=== PATIENT | female | born 1975 | race Caucasian/White ===

== ENCOUNTER 2016-10-23 17:46 | Emergency (ER) | payer OTHER ==
[2016-10-23] MEDS ORDERED: Zofran 4 MG/2 ML VIAL IV ONE (18:35)
[2016-10-23] MEDS ORDERED: PROTONIX 40 MG IV IV ONE ×2 (18:35→18:43)
[2016-10-23] MEDS ORDERED: Zofran 4 MG/2 ML VIAL ONE (18:43)
[2016-10-23] MEDS ORDERED: Sodium Chloride 0.9% 1000 ML 1,000 ML ONE (18:43)
--- NOTE | 2016-10-23 18:44 | ERPHSYRPT ---
- History of Present Illness Historian: patient Exam Limitations: clinical condition Patient Subjective Stated Complaint: PT REPORTS WHOLE BACK PAIN FOR 3 WEEKS-ABD PAIN BEGINNING TODAY-VOMITED X 1 YESTERDAY Triage Nursing Assessment: PT PINK WARM ET [id number] QUESTIONS-NO OBVIOUS SIGN OF INJURY-PT MOVING ALL EXTREMITIES WITHE ASE Timing/Duration: week(s) Activities at Onset: none Quality: cramping Abdominal Pain Onset Location: epigastric Pain Radiation: no radiation Severity of Pain-Max: moderate Severity of Pain-Current: moderate Modifying Factors: Improves With: vomiting Associated Symptoms: back Previous symptoms: same symptoms as today Hx Tetanus, Diphtheria Vaccination/Date Given: No Hx Influenza Vaccination/Date Given: No Hx Pneumococcal Vaccination/Date Given: No Immunizations Up to Date: Yes <JOSE LUIS GEORGE - Last Filed: 10/23/16 19:08> <MARK KIRK - Last Filed: 10/23/16 21:46> - History of Present Illness Time Seen by Provider: 10/23/16 18:20 Physician History: PATIENT COMPLAINS OF GENERALIZED BACK PAIN FOR 3 WEEKS NOW HAS UPPER ABDOMINAL PAIN ASSOCIATED WITH EMESIS X 1 YESTERDAY. DENIES FEVER, DIARRHEA, URINARY SYMPTOMS. (JOSE LUIS GEORGE) Allergies/Adverse Reactions: No Known Drug Allergies Allergy (Verified 10/23/16 18:14) Home Medications: Escitalopram Oxalate 10 mg [Lexapro 10 MG] 10 mg PO DAILY 10/23/16 [History] - Review of Systems Constitutional: No Fever, No Chills Eyes: No Symptoms Ears, Nose, & Throat: No Symptoms Respiratory: No Symptoms, No Cough, No Dyspnea Cardiac: No Symptoms, No Chest Pain, No Edema, No Syncope Abdominal/Gastrointestinal: Abdominal Pain, Nausea, Vomiting, No Diarrhea Genitourinary Symptoms: No Symptoms, No Dysuria Musculoskeletal: Back Pain, No Neck Pain Skin: No Symptoms, No Rash Neurological: No Symptoms, No Dizziness, No Focal Weakness, No Sensory Changes Psychological: No Symptoms Endocrine: No Symptoms All Other Systems: Reviewed and Negative <JOSE LUIS GEORGE - Last Filed: 10/23/16 19:08> - Past Medical History Pertinent Past Medical History: No Neurological History: No Pertinent History ENT History: No Pertinent History Cardiac History: No Pertinent History Respiratory History: No Pertinent History Endocrine Medical History: No Pertinent History Musculoskeletal History: Degenerative Disk Disease GI Medical History: Gallbladder Disease History: No Pertinent History Psycho-Social History: Depression, Other Female Reproductive Disorders: No Pertinent History Other Medical History: chronic back pain - Past Surgical History Past Surgical History: Yes Neuro Surgical History: No Pertinent History Cardiac: No Pertinent History Respiratory: No Pertinent History Gastrointestinal: No Pertinent History Genitourinary: No Pertinent History Musculoskeletal: Orthopedic Surgery Female Surgical History: Section, Hysterectomy Other Surgical History: SHOULDER SURGERY, appy - Social History Smoking Status: Current every day smoker How long have you smoked: 25 Exposure to second hand smoke: Yes Drug Use: none Patient Lives Alone: No <NIKOLAIJOSE LUIS Major Last Filed: 10/23/16 19:08> - Physical Exam General Appearance: no apparent distress, alert Eye Exam: PERRL/EOMI, eyes nml inspection Ears, Nose, Throat Exam: normal ENT inspection, pharynx normal, moist mucous membranes Neck Exam: normal inspection, non-tender, supple, full range of motion Respiratory Exam: normal breath sounds, lungs clear, No respiratory distress Cardiovascular Exam: regular rate/rhythm, normal heart sounds Gastrointestinal/Abdomen Exam: soft, normal bowel sounds, tenderness ( EPIGASTRIC TENDERNESS,), No mass Back Exam: normal inspection, normal range of motion, decreased range of motion , other (MINIMAL PARASPINAL THORACIC TENDERNESS), No CVA tenderness, No vertebral tenderness Extremity Exam: normal inspection, normal range of motion, pelvis stable Neurologic Exam: alert, oriented x 3, cooperative, normal mood/affect, nml cerebellar function, sensation nml, No motor deficits Skin Exam: normal color, warm, dry SpO2 Interpretation: normal SpO2: 98 Oxygen Delivery: Room Air <NIKOLAIJOSE LUIS Medina Filed: 10/23/16 19:08> - Course EKG Interpreted by Me: RATE, Sinus Rhythm, NORMAL AXIS <NIKOLAIJOSE LUIS Major Filed: 10/23/16 19:08> - Course Nursing assessment & vital signs reviewed: Yes - CT Exams Abdomen/Pelvis CT Interpretation: Discussed w/radiologist (CT abdomen and pelvis: Compared to October 27, 2014. Stable L4-S1 degenerative dis. 12 mm left ovarian cyst. Remaining abdomen/pelvis negative) <MARK KIRK - Last Filed: 10/23/16 21:46> Ordered Tests: Active Orders 24 hr Category Date Time Status Clean Catch Urine Specimen STAT Care 10/23/16 18:35 Active IV Insertion STAT Care 10/23/16 18:35 Active ABDOMEN AND PELVIS W CONTRAST [CT] Stat Exams 10/23/16 20:04 Taken AMYLASE Stat Lab 10/23/16 18:45 Completed CBC W DIFF Stat Lab 10/23/16 18:45 Completed CMP Stat Lab 10/23/16 18:45 Completed LIPASE Stat Lab 10/23/16 18:45 Completed UA W/ MICROSCOPIC Stat Lab 10/23/16 18:40 Completed Urine Triage Profile Stat Lab 10/23/16 18:40 Completed Medication Summary Generic Name Dose Route Start Last Admin Trade Name Freq PRN Reason Stop Dose Admin Sodium Chloride 1,000 mls @ 500 mls/hr 10/23/16 18:45 10/23/16 18:51 Sodium Chloride 0.9% 1000 Ml IV 11/22/16 18:44 500 mls/hr .Q2H AQUILINO Administration Discontinued Medications Generic Name Dose Route Start Last Admin Trade Name Freq PRN Reason Stop Dose Admin Ondansetron HCl 4 mg 10/23/16 18:35 10/23/16 18:51 Zofran 4 Mg/2 Ml Vial IV 10/23/16 18:36 4 mg STAT ONE Administration Ondansetron HCl Confirm 10/23/16 18:43 Zofran 4 Mg/2 Ml Vial Administered 10/23/16 18:44 Dose 4 mg .ROUTE .STK-MED ONE Pantoprazole Sodium 40 mg 10/23/16 18:35 10/23/16 18:51 Protonix 40 Mg Iv IV 10/23/16 18:36 40 mg STAT ONE Administration Pantoprazole Sodium Confirm 10/23/16 18:43 Protonix 40 Mg Iv Administered 10/23/16 18:44 Dose 40 mg IV .STK-MED ONE Lab/Rad Data: Laboratory Result Diagrams 10/23/16 18:45 10/23/16 18:45 Laboratory Results 10/23/16 10/23/16 10/23/16 Range/Units 18:45 18:45 18:40 WBC 11.4 H (4.0-10.5) K/mm3 RBC 4.75 (4.1-5.4) M/mm3 Hgb 15.2 (12.0-16.0) gm/dl Hct 45.7 (35-47) % MCV 96.2 (78-100) fl MCH 32.0 (26-32) pg MCHC 33.3 (32-36) g/dl RDW 12.8 (11.5-14.0) % Plt Count 408 (150-450) K/mm3 MPV 9.3 (6-9.5) fl Gran % 77.8 H (36.0-66.0) % Lymphocytes % 15.9 L (24.0-44.0) % Monocytes % 4.8 (0.0-12.0) % Eosinophils % 1.1 (0.00-5.0) % Basophils % 0.4 (0.0-0.4) % Basophils # 0.05 (0-0.4) Sodium 140 (136-145) mEq/L Potassium 4.0 (3.5-5.1) mEq/L Chloride 104 (98-107) mEq/L Carbon Dioxide 23.9 (21-32) mEq/L Anion Gap 16.2 H (5-15) MEQ/L BUN 6 L (9-20) mg/dL Creatinine 0.78 (0.55-1.30) mg/dl Estimated GFR > 60 ML/MIN Glucose 93 (70-110) MG/DL Calcium 9.6 (8.5-10.1) mg/dL Total Bilirubin 0.2 (0.2-1.0) mg/dL AST 15 (15-37) U/L ALT 13 (12-78) U/L Alkaline Phosphatase 65 (46-116) U/L Serum Total Protein 7.7 (6.4-8.2) gm/dL Albumin 4.2 (3.4-5.0) g/dL Amylase 70 (25-115) U/L Lipase 132 (73-393) U/L Ur Collection Type Urine Color (YELLOW) Urine Appearance (CLEAR) Urine pH (5-6) Ur Specific Williams (1.005-1.025) Urine Protein (Negative) Urine Glucose (UA) (NEGATIVE) mg/dL Urine Ketones (NEGATIVE) Urine Nitrite (NEGATIVE) Urine Bilirubin (NEGATIVE) Urine Urobilinogen (0-1) mg/dL Urine WBC (Auto) (NEGATIVE) Urine RBC (Auto) (0-5) Yahir/ul Urine Microscopic RBC (0-2) /HPF Ur Epithelial Cells (FEW) /HPF Urine Bacteria (NEGATIVE) /HPF Urine Opiates Level NEG. (NEGATIVE) Ur Methadone NEG. (NEGATIVE) Urine Barbiturates NEG. (NEGATIVE) Ur Phencyclidine (PCP) NEG. (NEGATIVE) Urine Amphetamine NEG. (NEGATIVE) U Benzodiazepine Level NEG. (NEGATIVE) Urine Cocaine NEG. (NEGATIVE) Urine Marijuana (THC) NEG. (NEGATIVE) Specimen Received 10/23/16 Range/Units 18:40 WBC (4.0-10.5) K/mm3 RBC (4.1-5.4) M/mm3 Hgb (12.0-16.0) gm/dl Hct (35-47) % MCV (78-100) fl MCH (26-32) pg MCHC (32-36) g/dl RDW (11.5-14.0) % Plt Count (150-450) K/mm3 MPV (6-9.5) fl Gran % (36.0-66.0) % Lymphocytes % (24.0-44.0) % Monocytes % (0.0-12.0) % Eosinophils % (0.00-5.0) % Basophils % (0.0-0.4) % Basophils # (0-0.4) Sodium (136-145) mEq/L Potassium (3.5-5.1) mEq/L Chloride (98-107) mEq/L Carbon Dioxide (21-32) mEq/L Anion Gap (5-15) MEQ/L BUN (9-20) mg/dL Creatinine (0.55-1.30) mg/dl Estimated GFR ML/MIN Glucose (70-110) MG/DL Calcium (8.5-10.1) mg/dL Total Bilirubin (0.2-1.0) mg/dL AST (15-37) U/L ALT (12-78) U/L Alkaline Phosphatase (46-116) U/L Serum Total Protein (6.4-8.2) gm/dL Albumin (3.4-5.0) g/dL Amylase (25-115) U/L Lipase (73-393) U/L Ur Collection Type CLEAN CATCH Urine Color YELLOW (YELLOW) Urine Appearance CLEAR (CLEAR) Urine pH 5.0 (5-6) Ur Specific Williams 1.010 (1.005-1.025) Urine Protein NEGATIVE (Negative) Urine Glucose (UA) NEGATIVE (NEGATIVE) mg/dL Urine Ketones SMALL-15 (NEGATIVE) Urine Nitrite NEGATIVE (NEGATIVE) Urine Bilirubin NEGATIVE (NEGATIVE) Urine Urobilinogen 0.2 (0-1) mg/dL Urine WBC (Auto) NEGATIVE (NEGATIVE) Urine RBC (Auto) SMALL (0-5) Yahir/ul Urine Microscopic RBC 2-5 (0-2) /HPF Ur Epithelial Cells FEW (FEW) /HPF Urine Bacteria RARE (NEGATIVE) /HPF Urine Opiates Level (NEGATIVE) Ur Methadone (NEGATIVE) Urine Barbiturates (NEGATIVE) Ur Phencyclidine (PCP) (NEGATIVE) Urine Amphetamine (NEGATIVE) U Benzodiazepine Level (NEGATIVE) Urine Cocaine (NEGATIVE) Urine Marijuana (THC) (NEGATIVE) Specimen Received 10/23/16:1900 <JOSE LUIS GEORGE - Last Filed: 10/23/16 19:08> - Progress Progress: improved <MARK KIRK - Last Filed: 10/23/16 21:46> - Progress Progress Note: 10/23/16 18:44 PATIENT GIVEN IV FLUIDS NORMAL SALINE 500ML/HR, ZOFRAN 4MG, PROTONIX 40MG IV, PATIENT CARE ENDORSED TO DR KIRK AT 1907 FOR DISPOSITION 10/23/16 19:08 (JOSE LUIS GEORGE) 10/23/16 20:05 This is a 41-year-old white female initially seen by Dr. George. Patient arrives with complaint of pain in her entire back radiating across the left side of the back symptoms for 3 weeks worse at night around 3 in the morning when she is resting she states that today she started having epigastric pain associated with vomiting she has no fevers diarrhea or urinary symptoms she has no other complaints patient does have a history of degenerative disc disease and back pain in the past. Past medical history includes degenerative disc disease, depression, chronic back pain. Past surgical history includes , hysterectomy, orthopedic surgery, appendectomy. 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 Eyes PERRLA EOMI fundi are unremarkable. Ears TMs are intact bilaterally nose is clear. Throat is clear Neck is supple full range of motion Lungs clear to auscultation equal bilaterally Heart regular rate and rhythm without murmur/ Abdomen mild epigastric tenderness positive bowel sounds negative masses negative rebound. Back mild tenderness with palpation left posterior flank region and down into the lumbar region. Extremities full range of motion was equal symmetrical 2 over 4. Neuro cranial nerves II through XII are intact DTRs symmetrical equal 2/4 GCS is 15 sensation intact to all extremities. Impression back pain 3 weeks duration., Epigastric pain Plan CBC has been obtained by Dr. George shows white count 11 hemoglobin 15.2 hematocrit 45.7 platelets 408 urine drug screen is negative chemistry is essentially normal with the exception of an anion gap of 16.2 urinalysis is essentially normal with the exception of a small amount of ketones and 2-5 red cells. Have discussed patient's case with Dr. George consideration was to obtain CT of the abdomen and pelvis Will go ahead and obtain this, I have looked patient up on inspect them not finding anything in [place] will resubmit for [place] as well Will give patient Toradol 30 mg IV patient has already received IV normal saline per Dr. George. 10/23/16 21:[address] of the abdomen and pelvis is positive for degenerative disc disease L4-S1 which is stable since October 27, 2014. There is a left ovarian cyst 12 mm. Remaining abdomen and pelvis are negative. Patient feeling better after Toradol. I've discussed medications with the patient she does not want narcotic analgesia. Will send patient home with Naprosyn and Flexeril (MARK KIRK) <JOSE LUIS GEORGE - Last Filed: 10/23/16 19:08> - Departure Time of Disposition: 21:43 Departure Disposition: Home Critical Care Time: No <MARK KIRK - Last Filed: 10/23/16 21:46> - Departure Clinical Impression: Epigastric pain Back pain Qualifiers: Back pain location: low back pain Chronicity: acute Back pain laterality: left Sciatica presence: without sciatica Qualified Code(s): M54.5 - Low back pain Degenerative disc disease Qualifiers: Spinal region: lumbosacral Qualified Code(s): M51.37 - Other intervertebral disc degeneration, lumbosacral region Condition: Fair Instructions: Low Back Pain Additional Instructions: Return home. Plenty of fluids, clear fluids only 24-48 hours if abdominal pain. Naprosyn 500 mg one orally twice a day with food as needed for pain. Flexeril 10 mg orally 3 times a day for 5 days. Follow-up with your family doctor. Return for acute distress or for severe symptoms. Prescriptions: Cyclobenzaprine HCl [Flexeril] 10 mg PO TID #15 tablet Naproxen [Naprosyn] 500 mg PO BIDWMEALS #20 tablet
[2016-10-23] MEDS ORDERED: Sodium Chloride 0.9% 1000 ML 1,000 ML IV SCH (18:45)
[2016-10-23 19:15] LABS: BASOPHIL % 0.4 % (0.0-0.4); Eosinophil % 1.1 % (0.00-5.0); Granulocytes % 77.8 % (36.0-66.0); Lymphocytes % 15.9 % (24.0-44.0); Mean Cell Volume 96.2 fl (78-100); Mean Platelet Volume 9.3 fl (6-9.5); Monocytes % 4.8 % (0.0-12.0); Platelet Count 408 K/mm3 (150-450); Red Blood Count 4.75 M/mm3 (4.1-5.4); Red Cell Distribution Width 12.8 % (11.5-14.0); White Blood Count 11.4 K/mm3 (4.0-10.5)
[2016-10-23 19:21] LABS: Collection Type CLEAN CATCH
[2016-10-23 19:22] LABS: Bacteria RARE /HPF (NEGATIVE); COMPLETE URINE MICROSCOPIC? YES; Epithelial Cells FEW /HPF (FEW)
[2016-10-23 19:36] LABS: ALBUMIN 4.2 g/dL (3.4-5.0); ALKALINE PHOSPHATASE 65 U/L (46-116); ANION GAP 16.2 MEQ/L (5-15); BILIRUBIN,TOTAL 0.2 mg/dL (0.2-1.0); BLOOD UREA NITROGEN 6 mg/dL (9-20); CHLORIDE 104 mEq/L (98-107); Carbon Dioxide 23.9 mEq/L (21-32); Glucose 93 MG/DL (70-110); LIPASE 132 U/L (73-393); SGOT/AST 15 U/L (15-37); SGPT/ALT 13 U/L (12-78); SODIUM 140 mEq/L (136-145); Total Protein 7.7 gm/dL (6.4-8.2)
[2016-10-23 21:05] VITALS: BP 132/71; PULSE 76; O2SAT 99
--- NOTE | 2016-10-24 08:50 | XRAY ---
Indication: Abdominal/back pain. Multiple contiguous axial images obtained through the abdomen and pelvis using 80 cc Isovue 370 contrast only. Comparison: October 27, 2014. Lung bases again demonstrates minimal bibasilar dependent atelectasis. Heart is not enlarged. Noncontrasted stomach and bowel loops appear nonobstructed. Again a few calcified splenic granulomas, cholecystectomy, hysterectomy, and reported appendectomy. 12 mm left ovary cyst. No free fluid/air. Remaining liver, pancreas, spleen, adrenal glands, kidneys, ureters, and bladder appear unremarkable. Again minimal distal aortic calcifications. No AAA or pathologic retroperitoneal lymphadenopathy. Osseous structures intact with stable moderate L4-S1 degenerative disc disease. Impression: 1. 12 mm left ovary cyst. 2. No acute intra-abdominal/pelvic abnormalities. CT DI 8.85
== END 2016-10-23 21:58 | disposition home or self-care (01) ==
LOC: ED 17:46
DX: M54.5 Low back pain (principal); M51.37 Other intervertebral disc degeneration, lumbosacral region; R10.13 Epigastric pain; R11.10 Vomiting, unspecified; R10.10 Upper abdominal pain, unspecified
CPT/HCPCS: 36000; 36415; 74177; 80053; 80307; 81000; 82150; 83690; 85025; 96360; 96361; 96374; 96375; 99284; J2405

== ENCOUNTER 2021-01-28 15:29 | Emergency (ER) | payer OTHER ==
[2021-01-28 16:04] VITALS: O2SAT 98
[2021-01-28 16:39] LABS: ALBUMIN 4.3 g/dL (3.5-5.0); ALKALINE PHOSPHATASE 88 U/L (38-126); BILIRUBIN,TOTAL < 0.10 mg/dL (0.2-1.3); BLOOD UREA NITROGEN 9 mg/dL (7-17); CHLORIDE 108 mmol/L (98-107); Calcium 9.7 mg/dL (8.4-10.2); Carbon Dioxide 20 mmol/L (22-30); Creatinine 1 0.82 mg/dL (0.52-1.04); EST GLOMERULAR FILTRATION RATE > 60.0 ML/MIN; Glucose 130 mg/dL (74-106); Potassium 3.8 mmol/L (3.5-5.1); SGOT/AST 32 U/L (14-36); SGPT/ALT 18 U/L (0-35); SODIUM 140 mmol/L (137-145); Total Protein 6.9 g/dL (6.3-8.2)
[2021-01-28 16:49] LABS: Absolute Neutrophil Ct (ANC) 4.06 (1.4-6.9); BASOPHIL % 1.1 % (0.0-0.4); Basophil (Absolute #) 0.07 (0-0.4); Eosinophil % 2.8 % (0.00-5.0); Eosinophil (Absolute #) 0.18 (0-0.5); Hematocrit 40.7 % (35-47); Hemoglobin 13.2 gm/dl (12.0-16.0); Lymphocyte (Absolute #) 1.68 (1.0-4.6); Lymphocytes % 26.3 % (24.0-44.0); Mean Cell Volume 110.6 fl (78-100); Mean Corpuscular Hemoglobin 35.9 pg (26-32); Mean Corpuscular Hgb Concent. 32.4 g/dl (32-36); Mean Platelet Volume 9.1 fl (7.5-11.0); Monocyte (Absolute #) 0.41 (0.0-1.3); Monocytes % 6.4 % (0.0-12.0); Neutrophil % 63.4 % (36.0-66.0); Platelet Count 369 K/mm3 (150-450); Red Blood Count 3.68 M/mm3 (4.1-5.4); Red Cell Distribution Width 13.9 % (11.5-14.0); White Blood Count 6.4 K/mm3 (4.0-10.5)
--- NOTE | 2021-01-28 17:25 | ERPHSYRPT ---
- History of Present Illness Time Seen by Provider: 01/28/21 15:45 Historian: patient Exam Limitations: no limitations Patient Subjective Stated Complaint: pt here for chest to center chest today with a headache, she states recently she has been under a lot of stress and her b/p has been high. she states she recently stoped drinking alc, Triage Nursing Assessment: pt alert, resp easy, skin w/d/p.face mask in place, no edema noted, nonproductive cough Physician History: Is a 45-year-old female who presents with a complaint of chest pain palpitations and heart racing which started while she was asleep. She has been under a great deal of stress recently with the of her father and she for a short period of time did some heavy binge drinking but has stopped 2 weeks ago and is not drinking any further she also was taken off of her thyroid medication 2 weeks ago when it was found her TSH was low apparently. 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 She also was found to have a low potassium but that has been corrected. She was encouraged to stop drinking further by the fact that her LFTs were elevated. She had dated blood pressure noted 2 weeks ago and she has noticed some change in her weight. Timing/Duration: today Activities at Onset: sleep Quality: pressure, throbbing Location: substernal Chest Pain Radiation: no radiation Severity of Pain-Max: mild Severity of Pain-Current: mild Modifying Factors: Improves With: nothing Associated Symptoms: palpitations Prior Chest Pain/Cardiac Workup: no prior chest pain Nitro Today/Relief: no nitro taken today Aspirin Treatment Today: no aspirin today Allergies/Adverse Reactions: No Known Drug Allergies Allergy (Verified 01/28/21 15:39) Home Medications: Escitalopram Oxalate 10 mg [Lexapro 10 MG] 10 mg PO DAILY 10/23/16 [History] Ergocalciferol (Vitamin D2) [Vitamin D] 1 ea DAILY 01/28/21 [History] Hx Tetanus, Diphtheria Vaccination/Date Given: No Hx Influenza Vaccination/Date Given: No Hx Pneumococcal Vaccination/Date Given: No Immunizations Up to Date: Yes Travel Risk - International Travel Have you traveled outside of the country in past 3 weeks: No - Coronavirus Screening Are you exhibiting any of the following symptoms?: No Close contact with a COVID-19 positive Pt in past 14-21 Days: No - Vaccine Status Have you recieved a Covid-19 vaccination: No - Review of Systems Constitutional: No Fever, No Chills Eyes: No Symptoms Ears, Nose, & Throat: No Symptoms Respiratory: No Cough, No Dyspnea Cardiac: Chest Pain, Palpitations, No Edema, No Syncope Abdominal/Gastrointestinal: No Abdominal Pain, No Nausea, No Vomiting, No Diarrhea Genitourinary Symptoms: No Dysuria Musculoskeletal: No Back Pain, No Neck Pain Skin: No Rash Neurological: No Dizziness, No Focal Weakness, No Sensory Changes Psychological: No Symptoms Endocrine: No Symptoms All Other Systems: Reviewed and Negative - Past Medical History Pertinent Past Medical History: No Neurological History: No Pertinent History ENT History: No Pertinent History Cardiac History: No Pertinent History Respiratory History: No Pertinent History Endocrine Medical History: Hypothyroidism Musculoskeletal History: Degenerative Disk Disease GI Medical History: Gallbladder Disease History: No Pertinent History Psycho-Social History: Depression, Other Female Reproductive Disorders: No Pertinent History Other Medical History: chronic back pain - Past Surgical History Past Surgical History: Yes Neuro Surgical History: No Pertinent History Cardiac: No Pertinent History Respiratory: No Pertinent History Gastrointestinal: No Pertinent History Genitourinary: No Pertinent History Musculoskeletal: Orthopedic Surgery Female Surgical History: Section, Hysterectomy Other Surgical History: SHOULDER SURGERY, appy - Social History Smoking Status: Current every day smoker How long have you smoked: 25 Exposure to second hand smoke: Yes Drug Use: none Patient Lives Alone: No - Female History Hx Last Menstrual Period: hyster Hx Now: No - Nursing Vital Signs Nursing Vital Signs: Initial Vital Signs Pulse Rate 105 H 01/28/21 15:36 Pain Scale Pain Intensity 5 - Physical Exam General Appearance: mild distress, alert Eye Exam: PERRL/EOMI, eyes nml inspection Ears, Nose, Throat Exam: normal ENT inspection, moist mucous membranes Neck Exam: normal inspection, non-tender, supple, full range of motion Respiratory Exam: normal breath sounds, lungs clear, No respiratory distress Cardiovascular Exam: regular rate/rhythm, normal heart sounds Gastrointestinal/Abdomen Exam: soft, No tenderness, No mass Back Exam: normal inspection, No CVA tenderness, No vertebral tenderness Extremity Exam: normal inspection, normal range of motion Neurologic Exam: alert, oriented x 3, cooperative, normal mood/affect, sensation nml, No motor deficits Skin Exam: normal color, warm, dry SpO2: 98 - Course Nursing assessment & vital signs reviewed: Yes EKG Interpreted by Me: RATE (105), Sinus Tach, NORMAL AXIS, NORMAL INTERVALS, NORMAL QRS - Radiology Exams Chest X-ray Interpretation: Interpreted by me, Negative Ordered Tests: Active Orders 24 hr Category Date Time Status CHEST 2 VIEWS (PA AND LAT) Stat Exams 01/28/21 16:23 Taken CBC W DIFF Stat Lab 01/28/21 16:15 Completed CMP Stat Lab 01/28/21 16:15 Completed TROPONIN Q3H Lab 01/28/21 16:15 Completed TROPONIN Q3H Lab 01/28/21 19:00 Ordered TROPONIN Q3H Lab 01/28/21 22:00 Ordered TSH [TSH, 3RD Generation] Stat Lab 01/28/21 16:15 Completed Lab/Rad Data: Laboratory Result Diagrams 01/28/21 16:15 01/28/21 16:15 Laboratory Results 01/28/21 01/28/21 01/28/21 Range/Units 16:15 16:15 16:15 WBC 6.4 (4.0-10.5) K/mm3 RBC 3.68 L (4.1-5.4) M/mm3 Hgb 13.2 (12.0-16.0) gm/dl Hct 40.7 (35-47) % MCV 110.6 H (78-100) fl MCH 35.9 H (26-32) pg MCHC 32.4 (32-36) g/dl RDW 13.9 (11.5-14.0) % Plt Count 369 (150-450) K/mm3 MPV 9.1 (7.5-11.0) fl Gran % 63.4 (36.0-66.0) % Eos # (Auto) 0.18 (0-0.5) Absolute Lymphs (auto) 1.68 (1.0-4.6) Absolute Monos (auto) 0.41 (0.0-1.3) Lymphocytes % 26.3 (24.0-44.0) % Monocytes % 6.4 (0.0-12.0) % Eosinophils % 2.8 (0.00-5.0) % Basophils % 1.1 (0.0-0.4) % Absolute Granulocytes 4.06 (1.4-6.9) Basophils # 0.07 (0-0.4) Sodium 140 (137-145) mmol/L Potassium 3.8 (3.5-5.1) mmol/L Chloride 108 H (98-107) mmol/L Carbon Dioxide 20 L (22-30) mmol/L Anion Gap 16.0 H (5-15) MEQ/L BUN 9 (7-17) mg/dL Creatinine 0.82 (0.52-1.04) mg/dL Estimated GFR > 60.0 ML/MIN Glucose 130 H (74-106) mg/dL Calcium 9.7 (8.4-10.2) mg/dL Total Bilirubin < 0.10 L (0.2-1.3) mg/dL AST 32 (14-36) U/L ALT 18 (0-35) U/L Alkaline Phosphatase 88 (38-126) U/L Troponin I (0.000-0.034) ng/mL Serum Total Protein 6.9 (6.3-8.2) g/dL Albumin 4.3 (3.5-5.0) g/dL TSH 3rd Generation 0.066 L (0.47-4.68) mIU/L 01/28/21 Range/Units 16:15 WBC (4.0-10.5) K/mm3 RBC (4.1-5.4) M/mm3 Hgb (12.0-16.0) gm/dl Hct (35-47) % MCV (78-100) fl MCH (26-32) pg MCHC (32-36) g/dl RDW (11.5-14.0) % Plt Count (150-450) K/mm3 MPV (7.5-11.0) fl Gran % (36.0-66.0) % Eos # (Auto) (0-0.5) Absolute Lymphs (auto) (1.0-4.6) Absolute Monos (auto) (0.0-1.3) Lymphocytes % (24.0-44.0) % Monocytes % (0.0-12.0) % Eosinophils % (0.00-5.0) % Basophils % (0.0-0.4) % Absolute Granulocytes (1.4-6.9) Basophils # (0-0.4) Sodium (137-145) mmol/L Potassium (3.5-5.1) mmol/L Chloride (98-107) mmol/L Carbon Dioxide (22-30) mmol/L Anion Gap (5-15) MEQ/L BUN (7-17) mg/dL Creatinine (0.52-1.04) mg/dL Estimated GFR ML/MIN Glucose (74-106) mg/dL Calcium (8.4-10.2) mg/dL Total Bilirubin (0.2-1.3) mg/dL AST (14-36) U/L ALT (0-35) U/L Alkaline Phosphatase (38-126) U/L Troponin I < 0.012 (0.000-0.034) ng/mL Serum Total Protein (6.3-8.2) g/dL Albumin (3.5-5.0) g/dL TSH 3rd Generation (0.47-4.68) mIU/L - Progress Progress: improved Air Movement: good Blood Culture(s) Obtained: No Antibiotics given: No - Departure Departure Disposition: Home Clinical Impression: Palpitations Condition: Stable Critical Care Time: No Referrals: DENIS ARDON [Primary Care Provider] - Instructions: Chest Pain (DC) Prescriptions: Metoprolol Succinate 50 mg [Toprol Xl 50 MG] 50 mg PO DAILY 30 Days #30 tablet
[2021-01-28 17:37] VITALS: BP 163/112; PULSE 78
--- NOTE | 2021-01-28 20:22 | XRAY ---
Indication: Chest pain. Comparison: None PA/lateral chest does not include the posterior gutter on the lateral view. No focal infiltrate, consolidation, or large effusion. A few incidental tiny calcified granulomas. Heart and mediastinal structures within normal limits. Bony thorax intact. Impression: Nonacute Limited chest. Incidental old granulomatous disease.
== END 2021-01-28 17:38 | disposition home or self-care (01) ==
LOC: ED 15:29
DX: R00.2 Palpitations (principal)
CPT/HCPCS: 36000; 36415; 71046; 80053; 84443; 84484; 85025; 93041; 94760; 99284

== ENCOUNTER 2021-08-22 16:56 | Emergency (ER) | payer OTHER ==
[2021-08-22 17:41] LABS: ALKALINE PHOSPHATASE 114 U/L (38-126); ANION GAP 16.9 MEQ/L (5-15); BLOOD UREA NITROGEN 10 mg/dL (7-17); CHLORIDE 104 mmol/L (98-107); Calcium 9.9 mg/dL (8.4-10.2); Carbon Dioxide 22 mmol/L (22-30); Creatinine 1 0.91 mg/dL (0.52-1.04); EST GLOMERULAR FILTRATION RATE > 60.0 ML/MIN; Glucose 96 mg/dL (74-106); Potassium 3.7 mmol/L (3.5-5.1); SGOT/AST 27 U/L (14-36); SGPT/ALT 12 U/L (0-35); SODIUM 139 mmol/L (137-145); Total Protein 8.3 g/dL (6.3-8.2)
--- NOTE | 2021-08-22 17:52 | ERPHSYRPT ---
- History of Present Illness Time Seen by Provider: 08/22/21 17:20 Historian: patient Exam Limitations: no limitations Patient Subjective Stated Complaint: Abdominal pain Triage Nursing Assessment: Patient ambulated back to ED and transferred self to bed. Patient A+O X3. Patient's skin pink, warm and dry. Patient complains of intermittent abdominal pain for 2 weeks that has gotten worse. Patient complains of dull aching pain on left side of abdomen 3/10. Patient denies N/V and diarrhea. Patient states she is a daily drinker of a fifth of [employer] beam but stopped drinking 6 days. Abdomen soft and round with BS X 4. Patient states at times the pain will radiate to chest and got into back. Physician History: Patient is a 46-year-old female presents to emergency department for evaluation of intermittent abdominal pain that has been ongoing for approximately 2 weeks. Patient states the pain is progressive. Pain is mostly on the left side of her abdomen. Pain rated 3 out of 10. Patient states pain occasionally shoots into her chest. No chest pain at this time. No associated nausea vomiting or diaphoresis. No rash. No fever. Patient admits to history of daily alcohol use. However patient has not used alcohol in 6 days. Symptoms are mild to moderate in intensity. No specific worsening improving factors. Patient is otherwise healthy. She voices no other complaints or concerns at this time. Timing/Duration: week(s) (2 weeks) Activities at Onset: none Quality: aching Abdominal Pain Onset Location: other (Left to midline of abdomen) Pain Radiation: other (No radiation of pain. However occasional shooting sensation to her chest.) Severity of Pain-Max: moderate Severity of Pain-Current: mild Modifying Factors: Improves With: nothing Associated Symptoms: denies symptoms Previous symptoms: no prior history Allergies/Adverse Reactions: No Known Drug Allergies Allergy (Verified 08/22/21 17:01) Home Medications: Escitalopram Oxalate 10 mg [Lexapro 10 MG] 20 mg PO DAILY 10/23/16 [History] Levothyroxine Sodium [Euthyrox] 1 tab PO DAILY 08/22/21 [History] Hx Tetanus, Diphtheria Vaccination/Date Given: No Hx Influenza Vaccination/Date Given: No Hx Pneumococcal Vaccination/Date Given: No Immunizations Up to Date: Yes Travel Risk - International Travel Have you traveled outside of the country in past 3 weeks: No - Coronavirus Screening Are you exhibiting any of the following symptoms?: No Close contact with a COVID-19 positive Pt in past 14-21 Days: No - Vaccine Status Have you recieved a Covid-19 vaccination: No - Review of Systems Constitutional: No Symptoms, No Fever, No Chills Eyes: No Symptoms Ears, Nose, & Throat: No Symptoms Respiratory: No Symptoms, No Cough, No Dyspnea Cardiac: No Symptoms, No Chest Pain, No Edema, No Syncope Abdominal/Gastrointestinal: No Symptoms, No Abdominal Pain, No Nausea, No Vomiting, No Diarrhea Genitourinary Symptoms: No Symptoms, No Dysuria Musculoskeletal: No Symptoms, No Back Pain, No Neck Pain Skin: No Symptoms, No Rash Neurological: No Symptoms, No Dizziness, No Focal Weakness, No Sensory Changes Psychological: No Symptoms Endocrine: No Symptoms Hematologic/Lymphatic: No Symptoms Immunological/Allergic: No Symptoms All Other Systems: Reviewed and Negative - Past Medical History Pertinent Past Medical History: No Neurological History: No Pertinent History ENT History: No Pertinent History Cardiac History: No Pertinent History Respiratory History: No Pertinent History Endocrine Medical History: Hypothyroidism Musculoskeletal History: Degenerative Disk Disease GI Medical History: Gallbladder Disease History: No Pertinent History Psycho-Social History: Depression, Other Female Reproductive Disorders: No Pertinent History Other Medical History: chronic back pain - Past Surgical History Past Surgical History: Yes Neuro Surgical History: No Pertinent History Cardiac: No Pertinent History Respiratory: No Pertinent History Gastrointestinal: No Pertinent History Genitourinary: No Pertinent History Musculoskeletal: Orthopedic Surgery Female Surgical History: Section, Hysterectomy Other Surgical History: SHOULDER SURGERY, appy - Social History Smoking Status: Current every day smoker How long have you smoked: 25 Exposure to second hand smoke: Yes Drug Use: none Patient Lives Alone: No - Female History Hx Last Menstrual Period: partial hysterectomy 1998 Hx Now: No - Nursing Vital Signs Nursing Vital Signs: Initial Vital Signs Temperature 98.1 F 08/22/21 17:07 Pulse Rate 95 H 08/22/21 17:07 Respiratory Rate 18 08/22/21 17:07 Blood Pressure 146/102 08/22/21 17:07 O2 Sat by Pulse Oximetry 97 08/22/21 17:07 Pain Scale Pain Intensity 3 - Physical Exam General Appearance: no apparent distress, alert Eye Exam: PERRL/EOMI, eyes nml inspection Ears, Nose, Throat Exam: normal ENT inspection, pharynx normal, moist mucous membranes Neck Exam: normal inspection, non-tender, supple, full range of motion Respiratory Exam: normal breath sounds, lungs clear, airway intact, No respiratory distress Cardiovascular Exam: regular rate/rhythm, normal heart sounds, normal peripheral pulses Gastrointestinal/Abdomen Exam: soft, normal bowel sounds, No tenderness, No mass Back Exam: normal inspection, normal range of motion, No CVA tenderness, No vertebral tenderness Extremity Exam: normal inspection, normal range of motion, pelvis stable Neurologic Exam: alert, oriented x 3, cooperative, normal mood/affect, nml cerebellar function, sensation nml, No motor deficits Skin Exam: normal color, warm, dry Lymphatic Exam: No adenopathy SpO2 Interpretation: normal SpO2: 97 O2 Delivery: Room Air - Course Nursing assessment & vital signs reviewed: Yes EKG Interpreted by Me: RATE (76), Sinus Rhythm, NORMAL AXIS, NORMAL INTERVALS (Biatrial enlargement.) - CT Exams Abdomen/Pelvis CT Interpretation: Tele-radiologist Report (Compared to 10/23/2016 new mild fluid distended small bowel loops unchanged on delayed images. Ileus versus enteritis. Remaining abdomen pelvis negative) Ordered Tests: Active Orders 24 hr Category Date Time Status IV Insertion STAT Care 08/22/21 17:12 Active ABDOMEN AND PELVIS W CONTRAST [CT] Stat Exams 08/22/21 17:14 Taken CBC W DIFF Stat Lab 08/22/21 17:31 Completed CMP Stat Lab 08/22/21 17:31 Completed LIPASE Stat Lab 08/22/21 17:31 Completed TROPONIN Q3H Lab 08/22/21 17:55 Completed TROPONIN Q3H Lab 08/22/21 21:00 Ordered TROPONIN Q3H Lab 08/23/21 00:00 Ordered TROPONIN Q3H Lab 08/23/21 03:00 Ordered TROPONIN Q3H Lab 08/23/21 06:00 Ordered UA W/RFX UR CULTURE Stat Lab 08/22/21 18:10 Ordered Medication Summary Discontinued Medications Generic Name Dose Route Start Last Admin Trade Name Freq PRN Reason Stop Dose Admin Morphine Sulfate 4 mg 08/22/21 20:27 08/22/21 20:33 Morphine Sulfate 4 Mg/Ml Injection IV 08/22/21 20:28 4 mg STAT ONE Administration Morphine Sulfate Confirm 08/22/21 20:29 Morphine Sulfate 4 Mg/Ml Injection Administered 08/22/21 20:30 Dose 4 mg .ROUTE .STTerascore-MED ONE Lab/Rad Data: Laboratory Result Diagrams 08/22/21 17:31 08/22/21 17:31 Laboratory Results 08/22/21 08/22/21 08/22/21 Range/Units 17:55 17:31 17:31 WBC (4.0-10.5) K/mm3 RBC (4.1-5.4) M/mm3 Hgb (12.0-16.0) gm/dl Hct (35-47) % MCV (78-100) fl MCH (26-32) pg MCHC (32-36) g/dl RDW (11.5-14.0) % Plt Count (150-450) K/mm3 MPV (7.5-11.0) fl Gran % (36.0-66.0) % Eos # (Auto) (0-0.5) Absolute Lymphs (auto) (1.0-4.6) Absolute Monos (auto) (0.0-1.3) Lymphocytes % (24.0-44.0) % Monocytes % (0.0-12.0) % Eosinophils % (0.00-5.0) % Basophils % (0.0-0.4) % Absolute Granulocytes (1.4-6.9) Basophils # (0-0.4) Sodium 139 (137-145) mmol/L Potassium 3.7 (3.5-5.1) mmol/L Chloride 104 (98-107) mmol/L Carbon Dioxide 22 (22-30) mmol/L Anion Gap 16.9 H (5-15) MEQ/L BUN 10 (7-17) mg/dL Creatinine 0.91 (0.52-1.04) mg/dL Estimated GFR > 60.0 ML/MIN Glucose 96 (74-106) mg/dL Calcium 9.9 (8.4-10.2) mg/dL Total Bilirubin 0.50 (0.2-1.3) mg/dL AST 27 (14-36) U/L ALT 12 (0-35) U/L Alkaline Phosphatase 114 (38-126) U/L Troponin I < 0.012 (0.000-0.034) ng/mL Serum Total Protein 8.3 H (6.3-8.2) g/dL Albumin 5.0 (3.5-5.0) g/dL Lipase 170 (23-300) U/L 08/22/21 Range/Units 17:31 WBC 8.1 (4.0-10.5) K/mm3 RBC 4.64 (4.1-5.4) M/mm3 Hgb 15.4 (12.0-16.0) gm/dl Hct 47.4 H (35-47) % MCV 102.2 H (78-100) fl MCH 33.2 H (26-32) pg MCHC 32.5 (32-36) g/dl RDW 12.9 (11.5-14.0) % Plt Count 418 (150-450) K/mm3 MPV 8.9 (7.5-11.0) fl Gran % 59.9 (36.0-66.0) % Eos # (Auto) 0.19 (0-0.5) Absolute Lymphs (auto) 2.31 (1.0-4.6) Absolute Monos (auto) 0.68 (0.0-1.3) Lymphocytes % 28.4 (24.0-44.0) % Monocytes % 8.4 (0.0-12.0) % Eosinophils % 2.3 (0.00-5.0) % Basophils % 1.0 (0.0-0.4) % Absolute Granulocytes 4.87 (1.4-6.9) Basophils # 0.08 (0-0.4) Sodium (137-145) mmol/L Potassium (3.5-5.1) mmol/L Chloride (98-107) mmol/L Carbon Dioxide (22-30) mmol/L Anion Gap (5-15) MEQ/L BUN (7-17) mg/dL Creatinine (0.52-1.04) mg/dL Estimated GFR ML/MIN Glucose (74-106) mg/dL Calcium (8.4-10.2) mg/dL Total Bilirubin (0.2-1.3) mg/dL AST (14-36) U/L ALT (0-35) U/L Alkaline Phosphatase (38-126) U/L Troponin I (0.000-0.034) ng/mL Serum Total Protein (6.3-8.2) g/dL Albumin (3.5-5.0) g/dL Lipase (23-300) U/L - Progress Progress: improved Progress Note: Patient reassessed. Pain improved. Work-up reveals ileus versus enteritis. CAT scan otherwise negative. No indication for further work-up at this time. Will discharge home. Patient to modify diet to clear liquids until symptoms resolve. Patient agrees to follow-up with her primary care doctor within 48 hours for evaluation. She voices no other complaints or concerns at this time. Portions of this note were created with voice recognition technology. There may be grammatical, spelling, punctuation or sound alike errors 08/22/21 20:33 Counseled pt/family regarding: lab results, diagnosis, need for follow-up, rad results - Departure Departure Disposition: Home Clinical Impression: Enteritis, Ileus, Abdominal pain Condition: Stable Critical Care Time: No Referrals: DENIS ARDON [NON-STAFF PHY W/O PRIVILEGES] - Follow up/PCP as directed Additional Instructions: Discharge/Care Plan KAYODE LEI was seen on 08/22/21 in the Emergency Room. The patient was counseled regarding Diagnosis,Lab results, Imaging studies, need for follow up and when to return to the Emergency Room. Prescriptions given: Discharge Note I have spoken with the patient and/or caregivers. I have explained the patient's condition, diagnosis and treatment plan based on the information available to me at this time. I have answered the patient's and/or caregiver's questions and addressed any concerns. The patient and/or caregivers have as good understanding of the patient's diagnosis, condition and treatment plan as can be expected at this point. The vital signs have been stable. The patient's condition is stable and appropriate for discharge from the emergency department. The patient will pursue further outpatient evaluation with the primary care physician or other designated or consulting physician as outlined in the discharge instructions. The patient and/or caregivers are agreeable to this plan of care and follow-up instructions have been explained in detail. The patient and/or caregivers have received these instruction. The patient/and or caregivers are aware that any significant change in condition or worsening of symptoms should prompt an immediate return to this or the closest emergency department or call 911.
[2021-08-22 18:00] LABS: Absolute Neutrophil Ct (ANC) 4.87 (1.4-6.9); Basophil (Absolute #) 0.08 (0-0.4); Eosinophil % 2.3 % (0.00-5.0); Eosinophil (Absolute #) 0.19 (0-0.5); Hematocrit 47.4 % (35-47); Hemoglobin 15.4 gm/dl (12.0-16.0); Lymphocyte (Absolute #) 2.31 (1.0-4.6); Lymphocytes % 28.4 % (24.0-44.0); Mean Cell Volume 102.2 fl (78-100); Mean Corpuscular Hemoglobin 33.2 pg (26-32); Mean Corpuscular Hgb Concent. 32.5 g/dl (32-36); Mean Platelet Volume 8.9 fl (7.5-11.0); Monocyte (Absolute #) 0.68 (0.0-1.3); Monocytes % 8.4 % (0.0-12.0); Neutrophil % 59.9 % (36.0-66.0); Platelet Count 418 K/mm3 (150-450); Red Blood Count 4.64 M/mm3 (4.1-5.4); Red Cell Distribution Width 12.9 % (11.5-14.0); White Blood Count 8.1 K/mm3 (4.0-10.5)
[2021-08-22] MEDS ORDERED: MORPHINE SULFATE 4 MG INJ IV ONE (20:27)
[2021-08-22] MEDS ORDERED: MORPHINE SULFATE 4 MG INJ ONE (20:29)
[2021-08-22 20:31] VITALS: BP 162/88
[2021-08-22 20:35] VITALS: O2SAT 97
[2021-08-22 20:50] VITALS: PULSE 74
[2021-08-22 21:02] LABS: Appearance SLIGHTLY CLOUDY (CLEAR); Bacteria RARE /HPF (NEGATIVE); Bilirubin NEGATIVE (NEGATIVE); Blood SMALL Ery/ul (0-5); Epithelial Cells RARE /HPF (FEW); Glucose NEGATIVE (NEGATIVE); Ketones NEGATIVE (NEGATIVE); Leukocyte Esterase NEGATIVE (NEGATIVE); Mucus SLIGHT /HPF (NEGATIVE); Nitrite NEGATIVE (NEGATIVE); Protein,Urine Dip 30 (Negative); RBC 0-2 /HPF (0-2); Urobilinogen NEGATIVE mg/dL (0-1); WBC 0-2 /HPF (0-5)
--- NOTE | 2021-08-23 08:43 | XRAY ---
Indication: Abdomen pain 2 weeks. Nausea, vomiting, diarrhea, and constipation. Multiple contiguous axial images obtained through the abdomen and pelvis using 80 cc Isovue 370 contrast. Comparison: October 23, 2016. Lung bases demonstrates minimal left base subsegmental atelectasis/scarring. Heart not enlarged. Noncontrasted stomach and bowel loops appear nonobstructed. Duodenum and jejunum are now mildly fluid distended with wall thickening and fluid leveling, unchanged on delayed imaging. Findings favor ileus versus enteritis. Again cholecystectomy, hysterectomy, and appendectomy reported. No free fluid/air. Stable tiny splenic calcified granulomas. Remaining liver, pancreas, spleen, adrenal glands, kidneys, ureters, and bladder are unremarkable. Stable minimal aortic calcifications. No AAA or pathologic retroperitoneal lymphadenopathy. Osseous structures intact again with moderate L4-S1 degenerative disc disease. Impression: 1. New mild fluid distended small bowel loops with fluid leveling, ileus versus enteritis. 2. Stable L4-S1 degenerative disc disease. 3. Remaining CT abdomen/pelvis with contrast exam is negative.
== END 2021-08-22 20:55 | disposition home or self-care (01) ==
LOC: ED 16:56
DX: K52.9 Noninfective gastroenteritis and colitis, unspecified (principal); K56.7 Ileus, unspecified; R10.32 Left lower quadrant pain; R10.12 Left upper quadrant pain; Z72.0 Tobacco use; Z79.899 Other long term (current) drug therapy
CPT/HCPCS: 36000; 36415; 74177; 80053; 81001; 83690; 84484; 85025; 87086; 93005; 96374; 99284; J2270